=== PATIENT | female | born 1945 | race Caucasian/White ===

== ENCOUNTER 2017-02-06 11:00 | Day surgery (SDC) | payer MEDICARE ==
[2017-02-02 10:08] VITALS: BMI 24.4
[~2017-02-06 11:00] MED LIST: LACTATED RINGERS 1,000 ML IV SCH
[2017-02-06 11:17] VITALS: RESP 16; TEMP 98.3
[2017-02-06] MEDS ORDERED: LIDOCAINE 1% 20 ML VIAL (10MG/ML) FOR IV START INTRADERMA ONE (11:22)
[2017-02-06] MEDS ORDERED: PROPOFOL 10 MG/ML 20 ML VIAL IV ONE (12:20)
--- NOTE | 2017-02-06 12:53 | P.PCN ---
Date of Procedure: 02/06/17 Preoperative Diagnosis: Postoperative Diagnosis: Procedure(s) Performed: Procedure: Total colonoscopy. Preoperative diagnosis: Change in bowel habits. Postoperative diagnosis: Diverticulosis with no evidence of acute diverticulitis , strictures, polyps or cancer. Preparation: HalfLytely prep. Sedation: Was provided by anesthesia. Brief clinical history: The patient is a 71-year-old female who had a bout of diarrhea earlier this month that lasted more than a week. The patient's last colonoscopy was around 9-10 years ago. This evaluation was requested to rule out neoplasia or other pathology. Procedure: With the patient on her left lateral decubitus position and after informed consent and adequate sedation, the perianal area was inspected and it did not show any fissures or fistulas. There were no masses felt on digital rectal examination. The Olympus CFQ 160L video colonoscope was then inserted in the rectum in the usual fashion and advanced to the cecum. The mucosa appeared healthy. There were multiple diverticular orifices seen scattered along the length of the bowel with no evidence of acute diverticulitis or strictures. No polyps or tumors were seen. The patient tolerated the procedure well. Plan: The patient was reassured. Discussed dietary measures. She will follow- up with you as planned and further plans can be made based on her course. I would be happy to see in the future if needed. Implants: Indications for Procedure: Operative Findings: Description of Procedure:
[2017-02-06 13:17] VITALS: BP 157/66; PULSE 61
== END 2017-02-06 13:41 | disposition home or self-care (01) ==
LOC: ORWHC2ENDO 11:00
DX: K57.30 Diverticulosis of large intestine without perforation or abscess without bleeding (principal); R19.4 Change in bowel habit; I10 Essential (primary) hypertension; E78.5 Hyperlipidemia, unspecified; Z79.899 Other long term (current) drug therapy
CPT/HCPCS: 45378; J2704

== ENCOUNTER → 2017-06-13 | Outpatient (CLI) | payer MEDICARE ==
--- NOTE | 2017-06-14 09:27 | MM ---
Reason for exam: screening (asymptomatic). Last mammogram was performed 1 year and 3 months ago. History: Patient is postmenopausal. Physical Findings: A clinical breast exam by your physician is recommended on an annual basis and results should be correlated with mammographic findings. MG 3D Screening Mammo W/Cad Bilateral CC and MLO view(s) were taken. Prior study comparison: March 08, 2016, bilateral MG screening mammo w CAD. January 01, 2015, bilateral MG screening mammo w CAD. June 27, 2013, bilateral digital screening mammo w/CAD. The breast tissue is heterogeneously dense. This may lower the sensitivity of mammography. Finding: There are stable typically benign circumscribed round oval masses in both breasts. No suspicious abnormality. No significant changes in finding since March 08, 2016, January 01, 2015, and June 27, 2013. ASSESSMENT: Benign, BI-RAD 2 RECOMMENDATION: Routine screening mammogram of both breasts in 1 year.
== END | disposition home or self-care (01) ==
LOC: RADMAMWWP 15:19
PROVIDERS: ATTEND Internal Medicine
DX: Z12.31 Encounter for screening mammogram for malignant neoplasm of breast (principal)
CPT/HCPCS: 77063; 77067

== ENCOUNTER → 2018-07-02 | Outpatient (CLI) | payer MEDICARE ==
--- NOTE | 2018-07-06 09:34 | MM ---
Reason for exam: screening (asymptomatic). Last mammogram was performed 1 year and 1 month ago. History: Patient is postmenopausal. Took hormonal contraceptives for 2 years. MG Screening Mammo w CAD Bilateral CC and MLO view(s) were taken. Prior study comparison: June 13, 2017, bilateral MG 3d screening mammo w/cad. March 08, 2016, bilateral MG screening mammo w CAD. The breast tissue is heterogeneously dense. This may lower the sensitivity of mammography. No discrete abnormality. No significant changes when compared with prior studies. ASSESSMENT: Negative, BI-RAD 1 RECOMMENDATION: Routine screening mammogram of both breasts in 1 year.
== END ==
LOC: RADMAMWWP 12:47
PROVIDERS: ATTEND Internal Medicine
DX: Z12.31 Encounter for screening mammogram for malignant neoplasm of breast (principal)
CPT/HCPCS: 77067

== ENCOUNTER → 2019-08-18 | Outpatient (CLI) | payer MEDICARE ==
--- NOTE | 2019-08-19 10:36 | MM ---
Reason for exam: screening (asymptomatic). Last mammogram was performed 1 year and 2 months ago. History: Patient is postmenopausal. Took hormonal contraceptives for 2 years. Physical Findings: A clinical breast exam by your physician is recommended on an annual basis and results should be correlated with mammographic findings. MG 3D Screening Mammo W/Cad Bilateral CC and MLO view(s) were taken. Prior study comparison: July 02, 2018, bilateral MG screening mammo w CAD. June 13, 2017, bilateral MG 3d screening mammo w/cad. The breast tissue is heterogeneously dense. This may lower the sensitivity of mammography. There are benign appearing round calcifications bilaterally. There is chronic nodularity in the right breast. There is no dominant lesion. Benign bilateral axillary lymph nodes redemonstrated. ASSESSMENT: Benign, BI-RAD 2 RECOMMENDATION: Routine screening mammogram of both breasts in 1 year.
== END | disposition home or self-care (01) ==
LOC: RADMAMWWP 16:05
PROVIDERS: ATTEND Internal Medicine
DX: Z12.31 Encounter for screening mammogram for malignant neoplasm of breast (principal)
CPT/HCPCS: 77063; 77067

== ENCOUNTER 2020-10-22 11:00 | Emergency (ER) | payer MEDICARE ==
[2020-10-22 11:08] VITALS: BP 179/81; PULSE 71; RESP 18; TEMP 97.6
[2020-10-22 12:35] LABS: Basophils # (A) 0.1 k/uL (0-0.2); Basophils % (A) 1 %; Eosinophils # (A) 0.1 k/uL (0-0.7); Eosinophils % (A) 2 %; HCT 46.9 % (34.0-46.0); HGB 15.4 gm/dL (11.4-16.0); Lymphocytes # (A) 1.5 k/uL (1.0-4.8); Lymphocytes % (A) 24 %; MCH 28.8 pg (25.0-35.0); MCHC 32.9 g/dL (31.0-37.0); MCV 87.4 fL (80.0-100.0); Mean Platelet Volume 8.7; Monocytes # (A) 0.3 k/uL (0-1.0); Monocytes % (A) 5 %; Neutrophils # (A) 4.2 k/uL (1.3-7.7); Neutrophils % (A) 66 %; Platelet Count 200 k/uL (150-450); RBC 5.37 m/uL (3.80-5.40); RDW 13.8 % (11.5-15.5); WBC 6.4 k/uL (3.8-10.6)
[2020-10-22 12:38] LABS: Appearance,Urine Clear (Clear); Bilirubin,Urine Negative (Negative); Blood,Urine Moderate (Negative); Color,Urine Yellow; Glucose,Urine (UA) Negative (Negative); Ketones,Urine Negative (Negative); Leukocyte Esterase,Urine Small (Negative); Mucus,Urine Rare /hpf; Nitrite,Urine Negative (Negative); Protein,Urine Negative (Negative); RBC,Urine >182 /hpf (0-5); Specific Gravity,Urine 1.023 (1.001-1.035); Squamous Epithelial Cell,Urine <1 /hpf (0-4); Urobilinogen,Urine <2.0 mg/dL (<2.0); WBC,Urine 3 /hpf (0-5)
[2020-10-22 12:44] LABS: ALT 23 U/L (4-34); AST 26 U/L (14-36); African American GFR (CKD) >90 (>60 ml/min/1.73 sqM); Albumin 4.6 g/dL (3.5-5.0); Alkaline Phosphatase 74 U/L (38-126); Anion Gap 7 mmol/L; Blood Urea Nitrogen 20 mg/dL (7-17); Calcium 9.6 mg/dL (8.4-10.2); Carbon Dioxide 26 mmol/L (22-30); Chloride 109 mmol/L (98-107); Glucose 92 mg/dL (74-99); Non-African American GFR(CKD) 87 (>60 ml/min/1.73 sqM); Potassium 4.1 mmol/L (3.5-5.1); Sodium 142 mmol/L (137-145); Total Bilirubin 0.5 mg/dL (0.2-1.3); Total Protein 7.4 g/dL (6.3-8.2)
--- NOTE | 2020-10-22 13:35 | ED ---
Female Urogenital HPI - General Chief complaint: Vaginal Bleeding Stated complaint: female Time Seen by Provider: 10/22/20 11:11 Source: patient Mode of arrival: ambulatory Limitations: no limitations - History of Present Illness Initial comments: Patient is a 75-year-old female presenting to the emergency Department with complaints of vaginal bleeding that started this morning. Patient states she had the same issue 3 days ago, she was evaluated at [facility]. She did have an ultrasound there which showed no complicating process, she does have fibroids. Patient was given some medication, she states the bleeding stopped and she has not had any bleeding for the last 2 days. She states she woke up this morning and noticed bleeding again, describes a dark red, not a large amount. She thought she would come in for evaluation before it got worse again. She states she called Dr. Meier's office this morning who recommended coming into the ER for evaluation. She denies any pain, no nausea or vomiting, no fevers or chills. She states she did have a pessary and for the last month, they did take it out 3 days ago at the hospital. It is not back in. She has no further complaints at this time. - Related Data Home Medications Medication Instructions Recorded Confirmed Atorvastatin [Lipitor] 20 mg PO DAILY 02/02/17 10/22/20 Cyanocobalamin (Vitamin B-12) 1,000 mcg PO HS 02/02/17 10/22/20 [Vitamin B-12] Fish Oil/Dha/Epa [Fish Oil 1,200 1,200 mg PO HS 02/02/17 10/22/20 mg Fish Oil] Red Yeast Rice 1,200 mg PO HS 02/02/17 10/22/20 Vit C/E/Zn/Coppr/Lutein/Zeaxan 1 cap PO HS 02/02/17 10/22/20 [Preservision Areds 2 Softgel] Latanoprost [Xalatan 0.005%] 1 drop BOTH EYES HS 10/22/20 10/22/20 amLODIPine [Norvasc] 5 mg PO DAILY 10/22/20 10/22/20 Allergies Allergy/AdvReac Type Severity Reaction Status Date / Time No Known Allergies Allergy Verified 10/22/20 12:38 Review of Systems ROS Statement: Those systems with pertinent positive or pertinent negative responses have been documented in the HPI. ROS Other: All systems not noted in ROS Statement are negative. Past Medical History Past Medical History: Hyperlipidemia, Hypertension History of Any Multi-Drug Resistant Organisms: None Reported Past Surgical History: Bladder Surgery Additional Past Surgical History / Comment(s): COLONOSCOPY Past Anesthesia/Blood Transfusion Reactions: Motion Sickness Past Psychological History: No Psychological Hx Reported Smoking Status: Never smoker Past Alcohol Use History: None Reported Past Drug Use History: None Reported - Past Family History Mother Sister(s) Family Medical History: Cancer Father Family Medical History: Cancer Mother Family Medical History: Cancer General Exam - General Exam Comments Initial Comments: GENERAL: Patient is well-developed and well-nourished. Patient is nontoxic and in no acute distress. HEAD: Atraumatic, normocephalic. EYES: Pupils equal round and reactive to light, extraocular movements intact, sclera anicteric, conjunctiva are normal. Eyelids were unremarkable. ENT: TMs normal, nares patent, oropharynx clear without exudates. Moist mucous membranes. NECK: Normal range of motion, supple without lymphadenopathy or JVD. LUNGS: Unlabored respirations. Breath sounds clear to auscultation bilaterally and equal. No wheezes rales or rhonchi. HEART: Regular rate and rhythm without murmurs, rubs or gallops. ABDOMEN: Soft, nontender, normoactive bowel sounds. No guarding, no rebound. No masses appreciated. MUSCULOSKELETAL: Normal extremities with adequate strength and normal range of motion, no pitting or edema. No clubbing or cyanosis. NEUROLOGICAL: Patient is alert and oriented x 3. Motor and sensory are also intact. Cranial nerves II through XII grossly intact. Symmetrical smile. Normal speech, normal gait. PSYCH: Normal mood, normal affect. SKIN: Warm, Dry, normal turgor, no rashes or lesions noted. Limitations: no limitations External exam: Present: normal external exam Speculum exam: Present: vaginal bleeding (Very small amount of dark blood in the vaginal vault, mild cervical bleeding, no active hemorrhage, the centeno of the vagina look intact and normal.). Absent: cervical discharge, foreign body, laceration By manual exam: Present: normal by manual exam Course Vital Signs 10/22/20 11:03 Temperature 97.6 F Pulse Rate 71 Respiratory 18 Rate Blood Pressure 179/81 O2 Sat by Pulse 95 Oximetry Medical Decision Making - Medical Decision Making Patient is a 75-year-old female here for vaginal bleeding started this morning. She states she was seen at [facility] 3 days ago, had an ultrasound which showed some fibroids but no other findings. She states she has not had any bleeding for the last 2 days and then again this morning. She called Dr. Meier's office who recommended coming in for evaluation. She has no pain. Her vitals are stable. Her blood work is stable, comparable to 3 days ago at [facility]. On exam she has very small amount of dark blood around her cervix, no active bleeding, no hemorrhaging, no lacerations that I can see. I discussed with patient that she can follow up with Dr. Meier. Return parameters were given to the patient, she verbalized understanding. She is stab le for discharge and she is in agreement with this plan of care. - Lab Data Result diagrams: 10/22/20 12:12 10/22/20 12:12 Lab Results 10/22/20 10/22/20 10/22/20 Range/Units 12:12 12:12 12:12 WBC 6.4 (3.8-10.6) k/uL RBC 5.37 (3.80-5.40) m/uL Hgb 15.4 (11.4-16.0) gm/dL Hct 46.9 H (34.0-46.0) % MCV 87.4 (80.0-100.0) fL MCH 28.8 (25.0-35.0) pg MCHC 32.9 (31.0-37.0) g/dL RDW 13.8 (11.5-15.5) % Plt Count 200 (150-450) k/uL MPV 8.7 Neutrophils % 66 % Lymphocytes % 24 % Monocytes % 5 % Eosinophils % 2 % Basophils % 1 % Neutrophils # 4.2 (1.3-7.7) k/uL Lymphocytes # 1.5 (1.0-4.8) k/uL Monocytes # 0.3 (0-1.0) k/uL Eosinophils # 0.1 (0-0.7) k/uL Basophils # 0.1 (0-0.2) k/uL Sodium 142 (137-145) mmol/L Potassium 4.1 (3.5-5.1) mmol/L Chloride 109 H (98-107) mmol/L Carbon Dioxide 26 (22-30) mmol/L Anion Gap 7 mmol/L BUN 20 H (7-17) mg/dL Creatinine 0.67 (0.52-1.04) mg/dL Est GFR (CKD-EPI)AfAm >90 (>60 ml/min/1.73 sqM) Est GFR (CKD-EPI)NonAf 87 (>60 ml/min/1.73 sqM) Glucose 92 (74-99) mg/dL Calcium 9.6 (8.4-10.2) mg/dL Total Bilirubin 0.5 (0.2-1.3) mg/dL AST 26 (14-36) U/L ALT 23 (4-34) U/L Alkaline Phosphatase 74 (38-126) U/L Total Protein 7.4 (6.3-8.2) g/dL Albumin 4.6 (3.5-5.0) g/dL Urine Color Yellow Urine Appearance Clear (Clear) Urine pH 6.0 (5.0-8.0) Ur Specific [place] 1.023 (1.001-1.035) Urine Protein Negative (Negative) Urine Glucose (UA) Negative (Negative) Urine Ketones Negative (Negative) Urine Blood Moderate H (Negative) Urine Nitrite Negative (Negative) Urine Bilirubin Negative (Negative) Urine Urobilinogen <2.0 (<2.0) mg/dL Ur Leukocyte Esterase Small H (Negative) Urine RBC >182 H (0-5) /hpf Urine WBC 3 (0-5) /hpf Ur Squamous Epith Cells <1 (0-4) /hpf Urine Mucus Rare H (None) /hpf Disposition Clinical Impression: Dysfunctional uterine bleeding Disposition: HOME SELF-CARE Condition: Stable Instructions (If sedation given, give patient instructions): Dysfunctional Uterine Bleeding (ED) Additional Instructions: Please return to the Emergency Department if symptoms worsen or any other concerns. Follow-up with your [facility] TECHNICIAN as discussed. Is patient prescribed a controlled substance at d/c from ED?: No Referrals: Erwin Gill MD [Primary Care Provider] - 1-2 days Xavier Meier DO [Doctor of Osteopathic Medicine] - 1-2 days Time of Disposition: 13:52
== END 2020-10-22 14:04 | disposition home or self-care (01) ==
LOC: EC 11:00
DX: N93.8 Other specified abnormal uterine and vaginal bleeding (principal); I10 Essential (primary) hypertension; E78.5 Hyperlipidemia, unspecified
CPT/HCPCS: 36415; 80053; 81001; 85025; 99284

== ENCOUNTER → 2020-11-03 | Outpatient (CLI) | payer MEDICARE ==
[2020-11-03 23:05] LABS: Basophils # (A) 0.05 X 10*3/uL (0.00-0.10); Basophils % (A) 0.7 %; Eosinophils # (A) 0.15 X 10*3/uL (0.04-0.35); Eosinophils % (A) 2.2 %; HCT 48.2 % (37.2-46.3); HGB 15.3 g/dL (12.0-15.0); Lymphocytes # (A) 1.84 X 10*3/uL (0.90-5.00); Lymphocytes % (A) 27.2 %; MCH 28.7 pg (27.0-32.0); MCHC 31.7 g/dL (32.0-37.0); MCV 90.4 fL (80.0-97.0); Mean Platelet Volume 12.4 fL (9.5-12.2); Monocytes # (A) 0.54 X 10*3/uL (0.20-1.00); Neutrophils # (A) 4.16 X 10*3/uL (1.80-7.70); Neutrophils % (A) 61.6 %; Platelet Count 184 X 10*3/uL (140-440); RBC 5.33 X 10*6/uL (4.10-5.20); RDW 13.7 % (11.5-14.5); WBC 6.76 X 10*3/uL (4.50-10.00)
== END ==
LOC: LABWHC1 16:15
PROVIDERS: ATTEND Obstetrics & Gynecology
DX: Z01.812 Encounter for preprocedural laboratory examination (principal); Z01.810 Encounter for preprocedural cardiovascular examination
CPT/HCPCS: 36415; 85025; 93005

== ENCOUNTER 2020-11-25 11:13 | Day surgery (SDC) | payer MEDICARE ==
[2020-11-23 14:34] VITALS: BMI 24.6
--- NOTE | 2020-11-24 16:39 | P.HPOB ---
History of Present Illness H&P Date: 11/24/20 Chief Complaint: Postmenopausal bleeding Rufus is a 75-year-old female who has postmenopausal bleeding. She is scheduled for a D&C with hysteroscopy. Risks/benefits/alternatives to this procedure were reviewed the patient in detail and all questions were answered for her prior to proceeding to the operative. Ultrasound revealed a potential 2.5 cm lesion within the fundal region of her uterus and this needs to be evaluated for cancerous change. Past Medical History Past Medical History: Hyperlipidemia, Hypertension Additional Past Medical History / Comment(s): post menopausal bleeding,had pessary-currently removed History of Any Multi-Drug Resistant Organisms: None Reported Past Surgical History: Bladder Surgery Additional Past Surgical History / Comment(s): COLONOSCOPY,cataract removed rt eye Past Anesthesia/Blood Transfusion Reactions: No Reported Reaction Smoking Status: Never smoker - Past Family History Mother Sister(s) Family Medical History: Cancer Father Family Medical History: Cancer Mother Family Medical History: Cancer Medications and Allergies Home Medications Medication Instructions Recorded Confirmed Type Atorvastatin [Lipitor] 20 mg PO DAILY 02/02/17 11/23/20 History Cyanocobalamin (Vitamin B-12) 1,000 mcg PO HS 02/02/17 11/23/20 History [Vitamin B-12] Fish Oil/Dha/Epa [Fish Oil 1,200 1,200 mg PO HS 02/02/17 11/23/20 History mg Fish Oil] Red Yeast Rice 1,200 mg PO HS 02/02/17 11/23/20 History Vit C/E/Zn/Coppr/Lutein/Zeaxan 1 cap PO HS 02/02/17 11/23/20 History [Preservision Areds 2 Softgel] Latanoprost [Xalatan 0.005%] 1 drop BOTH EYES HS 10/22/20 11/23/20 History amLODIPine [Norvasc] 5 mg PO QAM 10/22/20 11/23/20 History Allergies Allergy/AdvReac Type Severity Reaction Status Date / Time No Known Allergies Allergy Verified 11/23/20 14:26 Exam Osteopathic Statement: *. No significant issues noted on an osteopathic structural exam other than those noted in the History and Physical/Consult. - OBG Physical Exam Breast: both: normal (no masses) Abdomen: bowel sounds normal, no diffuse tenderness, no bruit present, no guarding noted, no hepatomegaly, no splenomegaly, no mass Vulva: both: normal Vagina: normal moisture, no discharge Cervix: no lesion, no discharge Uterus: normal size, normal contour Adnexa: both: normal Anus/Rectum: normal perianal skin, no rectal mass, no hemorrhoids, heme negative
[~2020-11-25 11:13] MED LIST changes: +DEXAMETHASONE SOD PHOSPHATE 4 MG/ML 1 ML VIAL IV ONE; +HYDROmorphone 0.5 MG/0.5 ML SYRINGE IVP PRN; +LIDOCAINE 1% (10MG/ML) FOR IV START INTRADERMA PRN; +MIDAZOLAM 2 MG/2 ML VIAL IV PRN; +ONDANSETRON 4 MG/2 ML VIAL IVP ONE; +Pre Op ABX Message 1 EACH MISC MISCELLANE ONE
[2020-11-25] MEDS ORDERED: ROCURONIUM 10 MG/ML (5 ML VIAL) IV ONE ×2 (13:32)
[2020-11-25] MEDS ORDERED: fentaNYL (PF) 50 MCG/ML 2 ML AMP ONE (13:32)
[2020-11-25] MEDS ORDERED: MIDAZOLAM 2 MG/2 ML VIAL ONE (13:32)
[2020-11-25] MEDS ORDERED: KETOROLAC 15 MG/ML 1 ML VIAL ONE (13:32)
[2020-11-25] MEDS ORDERED: PHENYLEPHRINE-0.9% NACL SYG 1,000 MCG/10 ML SYRINGE ONE (13:32)
[2020-11-25] MEDS ORDERED: LIDOCAINE 1% INJ 10MG/ML (20 ML MDV) ONE (13:32)
[2020-11-25] MEDS ORDERED: PROPOFOL 10 MG/ML 20 ML VIAL IV ONE (13:32)
[2020-11-25] MEDS ORDERED: GLYCOPYRROLATE 0.2 MG/ML 2 ML VIAL ONE (13:32)
[2020-11-25] MEDS ORDERED: NEOSTIGMINE 1 MG/ML 10 ML VIAL ONE (13:32)
[2020-11-25] MEDS ORDERED: SUCCINYLCHOLINE CHLORIDE 100 MG/5 ML SYR IV ONE (13:32)
[2020-11-25] MEDS ORDERED: SODIUM CHLORIDE 0.9% 100 ML with ceFAZolin 2,000 MG IV ONE ×2 (14:36)
[2020-11-25] MEDS ORDERED: BUPIVACAINE (PF) 0.25% 30 ML VIAL SQ ONE (14:40)
[2020-11-25] MEDS ORDERED: LACTATED RINGERS 1,000 ML IV ONE (14:55)
--- NOTE | 2020-11-25 15:31 | P.OP ---
Date of Procedure: 11/25/20 Procedure(s) Performed: PREOPERATIVE DIAGNOSIS: Uterine perforation POSTOPERATIVE DIAGNOSIS: Same PROCEDURE: Laparoscopic repair uterine perforation with diagnostic laparoscopy SURGEON: Dennis EBL: 25 mL ANESTHESIA: Gen. COMPLICATIONS: None OPERATIVE PROCEDURE: Patient underwent D&C by gynecology. I was contacted to assist with this case after uterine perforation was encountered during the procedure. A small piece of fat was removed during the D&C and concern for possible intra-abdominal injury was raised. Gynecology spoke with the family and they decided to proceed with laparoscopic evaluation. The initial laparoscopic portion of the procedure will be dictated by gynecology as they obtained sufflation and initial trocar placement. After the abdomen was inspected 2 additional 5 mm trochars were placed in the right upper quadrant under direct visualization. The patient's pelvis was inspected. Some blood was present in the pelvis and evacuated using the suction device. A 1.5-2 cm perforation of the dome of the uterus was identified without significant active bleeding. The adjacent sigmoid colon was inspected. Patient had significant diverticulosis but no evidence of iatrogenic injury. The cecum and appendix were inspected. There was a small piece of fat seen missing from the mesentery of the appendix. This appeared to be the source of fat present during the D&C I suspect. The appendix itself was viable and only a small piece of fat was removed and not close to the appendix. The small bowel was then inspected. The small bowel was ran from the ileocecal valve to the ligament of Treitz. No abnormalities were identified. It was decided then to place 2 sutures to close the defect at the perforation site. 2-0 Vicryl suture was used using an SH needle that was bent slightly. Separate sutures were placed and tied down using the tie knot device. No bleeding was seen at that point. Pelvis was irrigated. No other abnormalities identified. Patient will be observed overnight. Closure will be dictated separately by gynecology. DISPOSITION: Stable to recovery room
[2020-11-25] MEDS ORDERED: ONDANSETRON 4 MG/2 ML VIAL IVP PRN (15:42)
[2020-11-25] MEDS ORDERED: KETOROLAC 15 MG/ML 1 ML VIAL IVP PRN (15:42)
[2020-11-25] MEDS ORDERED: SIMETHICONE 80 MG CHEWABLE PO PRN (15:42)
[2020-11-25] MEDS ORDERED: Acetaminophen-Codeine 300-30mg TAB PO PRN (15:42)
--- NOTE | 2020-11-25 15:52 | P.OP ---
Date of Procedure: 11/25/20 Preoperative Diagnosis: Postmenopausal bleeding with uterine mass Postoperative Diagnosis: Same with uterine perforation and diagnostic laparoscopy and repair of uterine perforation Procedure(s) Performed: D&C with hysteroscopy noted uterine perforation diagnostic laparoscopy with uterine perforation repair Anesthesia: CARMEN Surgeon: Xavier Meier Erp Engineer #1: Richard Collins Estimated Blood Loss (ml): 25 IV fluids (ml): 900 Urine output (ml): 250 Pathology: other (Uterine curettings) Condition: stable Disposition: floor Operative Findings: Uterine perforation noted during hysteroscopy converted to diagnostic laparoscopy verify no bowel injury Description of Procedure: Patient was taken to the operating suite where a general anesthetic was found be adequate. She was prepped and draped in the normal sterile fashion and placed in the dorsal lithotomy position. Initially a MATC was used. Initially a weighted speculum was inserted into the vagina and the anterior lip cervix identified and grasped with a Allis clamp. Cervix was then dilated. Camera was then inserted and noted large fundal mass it was on a stalk and difficult to say if it was a fibroid or polyp sharp curettings of the endometrium were then obtained. At this point we did try with a polyp forcep to grasp the mass and in trying to [place] around the mass I did feel like we had a purchase on the mass in therefore polyp forceps was retracted and a small piece what appeared to be fat was brought through. At this point due to that finding camera was reinserted and a uterine perforation was noted. It was difficult to say where in the uterine wall it was perforated as the mass she had the perforation and it was challenges to get around the mass to be able to see. Due to unknown possible towel injury and concern that the laceration may be fairly large due to the fact that I didn't know was there when we used polyp forceps I did break scrub and go speak with the family and decision to do a diagnostic laparoscopy with general surgeon was made to allow us to visualize the complete bowel to make sure there is no injuries as well as if the uterine laceration or perforation was bleeding could put suture in. She was converted then to laparoscopic procedure and a Driscoll catheter was placed. She was repositioned in the dorsal supine position and reprepped and draped and 2 g of Ancef was pr ovided. Quarter percent Marcaine was injected approximately 2 mL periumbilically and through this injected anesthetic a 5 mm skin incision was made. Through this incision under direct visualization with an optical trocar and sleeve the camera was inserted. Once peritoneal placement was assured gas was left fully insufflate the abdomen and patient was then placed in steep Trendelenburg position. At this point to ports were placed in the right lateral and upper lateral quadrants to allow for manipulation bowel. Dr. Dutton at this point did run the bowel there was a small piece of omentum were. Missing from the periappendiceal area but no bleeding is noted from that area appendix and other and bowel otherwise appear unremarkable there does not appear to be any lacerations or perforations there is no leaking from anywhere and the bowel approximately 10-15 minutes of the procedure was spent doing this part of the procedure. Once this was completed pelvis was irrigated and suctioned and a an approximately 1 cm laceration in the left fundal region was noted. Part of the urgency for doing a laparoscopy was then I was concerned that this may be actually posterior uterine perforation as that fibroid locked my ability to visualize around it and elected do was to see where the perforation was at the couldn't identify the location behind the fibroid. At this point using 3-0 Vicryl interrupted suture was placed in 2 separate sutures to reapproximate and close the uterine laceration please see Dr. Dutton notes for more thorough information on this closure and the running of the large and small intestine. Once this was completed reinspection was performed and no areas of bleeding or change are noted therefore incidents were removed and gas was allowed to expel from the abdomen. 5 deep breaths were provided during this process. 4-0 suture was then placed subcuticularly in the incisions and another 8-10 mL of quarter percent Marcaine was injected around the incisions. Sponge, lap, needle counts were all correct 2. Patient was then taken to the recovery room in stable and satisfactory condition and Driscoll cath will be removed removed prior to admission. We'll plan to admit 24 hour observation.
[2020-11-25] MEDS ORDERED: LACTATED RINGERS 1,000 ML IV SCH (16:30)
[2020-11-25] MEDS ORDERED: LATANOPROST 0.005% OPHTH DROPS 2.5 ML BTL BOTH EYES SCH (21:00)
[2020-11-26 08:55] VITALS: PULSE 71; RESP 18; TEMP 97.6
[2020-11-26] MEDS ORDERED: ATORVASTATIN 20 MG TAB PO SCH (09:00)
[2020-11-26] MEDS ORDERED: amLODIPine 5 MG TAB PO SCH (09:00)
[2020-11-26 09:12] VITALS: BP 155/77
--- NOTE | 2020-11-26 09:17 | P.DS ---
Providers Expected date of discharge: 11/26/20 Attending physician: Xavier Meier Consults: 11/25/20 17:51 Consult Physician Routine Consulting Provider: Erwin Glil Consult Reason/Comments: medical management Do you want consulting provider notified?: Yes Primary care physician: Erwin Gill [facility] Course: Naresh is seen and evaluated this morning postop day 1. She is able to ambulate, void and she is tolerating her diet. She is also passing flatus. Vital signs are stable and she is afebrile. Blood pressure had some elevations yesterday prior to her blood pressure medication but have stabilized since then. She is due for her blood pressure medicine now with blood pressure of 150s over 70s to 80s. She will follow me in 1 week. We again reviewed the surgery and consultation encountered. I did speak with her son and [id number] over the telephone and explained what happened and all questions were answered for them prior to hang up. She is doing well this morning and requests no narcotics for pain. Pressure for Motrin was for her to her pharmacy and strict discharge instructions were reviewed. She is aware should she have any high temperatures if she should have any severe pain abdominal bloating or swelling to notify our office immediately or report to the emergency room. Prescription for Keflex for next 3 days is also prescribed at her request. All the questions are answered and she is stable for discharge at this time. Patient Condition at Discharge: Good Plan - Discharge Summary Discharge Rx Participant: No New Discharge Prescriptions: New Ibuprofen [Motrin] 600 mg PO Q6HR PRN #30 tab PRN Reason: Pain No Action Atorvastatin [Lipitor] 20 mg PO DAILY Vit C/E/Zn/Coppr/Lutein/Zeaxan [Preservision Areds 2 Softgel] 1 cap PO HS Red Yeast Rice 1,200 mg PO HS Fish Oil/Dha/Epa [Fish Oil 1,200 mg Fish Oil] 1,200 mg PO HS Cyanocobalamin (Vitamin B-12) [Vitamin B-12] 1,000 mcg PO HS Latanoprost [Xalatan 0.005%] 1 drop BOTH EYES HS amLODIPine [Norvasc] 5 mg PO QAM Discharge Medication List Atorvastatin [Lipitor] 20 mg PO DAILY 02/02/17 [History] Cyanocobalamin (Vitamin B-12) [Vitamin B-12] 1,000 mcg PO HS 08/25/17 [History] Fish Oil/Dha/Epa [Fish Oil 1,200 mg Fish Oil] 1,200 mg PO HS 02/02/17 [History] Red Yeast Rice 1,200 mg PO HS 02/02/17 [History] Vit C/E/Zn/Coppr/Lutein/Zeaxan [Preservision Areds 2 Softgel] 1 cap PO HS 02/02/17 [History] Latanoprost [Xalatan 0.005%] 1 drop BOTH EYES HS 10/22/20 [History] amLODIPine [Norvasc] 5 mg PO QAM 10/22/20 [History] Ibuprofen [Motrin] 600 mg PO Q6HR PRN #30 tab 11/26/20 [Rx] Follow up Appointment(s)/Referral(s): Xavier Meier DO [Doctor of Osteopathic Medicine] - 1 Week Activity/Diet/Wound Care/Special Instructions: No heavy lifting, limit stairs and driving, and pelvic rest. If any high temperatures, heavy bleeding, or severe pain call my office Discharge Disposition: HOME SELF-CARE
== END 2020-11-26 11:00 | disposition home or self-care (01) ==
LOC: OR 11:13 → 6PED 16:13 → OR 11-26 11:00
PROVIDERS: ATTEND Obstetrics & Gynecology
DX: N95.0 Postmenopausal bleeding (principal); N99.71 Accidental puncture and laceration of a genitourinary system organ or structure during a genitourinary system procedure; Y65.8 Other specified misadventures during surgical and medical care; Y76.8 Miscellaneous obstetric and gynecological devices associated with adverse incidents, not elsewhere classified; Y92.234 Operating room of hospital as the place of occurrence of the external cause; K57.90 Diverticulosis of intestine, part unspecified, without perforation or abscess without bleeding; E78.5 Hyperlipidemia, unspecified; I10 Essential (primary) hypertension; Z79.899 Other long term (current) drug therapy
CPT/HCPCS: 88305; 58558; 58578; J2250; J1100; J2710; J2405; J0690; J2001; J3010; J1885; J2370; J0330; J2704; J1170

== ENCOUNTER → 2023-04-05 | Outpatient (CLI) | payer MEDICARE ==
--- NOTE | 2023-04-05 20:25 | BD ---
EXAMINATION TYPE: Axial Bone Density DATE OF EXAM: 04/05/2023 CLINICAL HISTORY: 77 years old Female. ICD-10 CODE: Z78.0 Height: 4 ft 9 1/2 in Weight: 118 FRAX RISK QUESTIONS: Alcohol (3 or more units per day): no Family History (Parent hip fracture): no Glucocorticoids (More than 3mos): no (Ex: prednisone, prednisolone, methylprednisolone, dexamethasone, and hydrocortisone). History of Fracture in Adulthood: no Secondary Osteoporosis: 1. Type 1 Diabetes: no 2. Hyperthyroidism: no 3. Menopause before 45: no 4. Malnutrition: no 5. Chronic liver disease: no Rheumatoid Arthritis: no Current Tobacco Use: no RISK FACTORS HISTORY OF: Surgery to Spine/Hip(right/left)/Wrist (right/left): no Family History of Osteoporosis: no Active: yes Diet low in dairy products/other sources of calcium: no Postmenopausal woman: yes Take estrogen and/or progesterone medications: no Lost more than 2 inches in height since high school: yes Frequent falls: no Poor Health: good Hyperparathyroidism: no Adrenal Insufficiency: no MEDICATIONS: Additional Medications: atorvastatin, amlodipine, triamterene-hctz, Additional History: EXAM MEASUREMENTS: Bone mineral densitometry was performed using the [employer] System. Bone mineral density as measured about the Lumbar spine is: ----- L1-L4(G/cm2): 1.199 T Score Values are as follows: ----- L1: 0.5 ----- L2: 0.0 ----- L3: 0.2 ----- L4: -0.2 ----- L1-L4: 0.2 Z Score Values are as follows: ----- L1: 2.6 ----- L2: 2.2 ----- L3: 2.4 ----- L4: 2.0 ----- L1-L4: 2.3 Bone mineral density has: decreased -2.0 % since study of: 2002 Bone mineral density about the R hip (g/cm2): 0.701 Bone mineral density about the L hip (g/cm2): 0.651 T Score values are as follows: -----R Neck: -2.4 -----L Neck: -2.8 -----R Total: -1.5 -----L Total: -1.4 Z Score values are as follows: -----R Neck: -0.2 -----L Neck: -0.5 -----R Total: 0.6 -----L Total: 0.7 Bone mineral density has: decreased -5.7 % since study of: 2002 FRAX%s: The graph provided illustrates a 21.0 % chance for a major osteoporotic fx and a 7.8 % chance for the hips probability for fx in 10 years time. IMPRESSION: Osteoporosis (T Score less than -2.5). There is increased fracture risk and therapy is usually indicated based on age. Re-Screen 1-2 years. NOTE: T-SCORE=SD OF THE YOUNG ADULT MEAN.
--- NOTE | 2023-04-06 07:36 | MM ---
Reason for Exam: Screening (asymptomatic). Last mammogram was performed 3 year(s) and 7 month(s) ago. Patient History: Menarche at age 19. First Full-Term at age 24. Postmenopausal. Patient used Hormonal Contraceptives for 2 years. Risk Values: Lisseth 5 year model risk: 1.4%. NCI Lifetime model risk: 2.9%. Prior Study Comparison: 06/13/2017 Bilateral Screening Mammogram, [facility]. 07/02/2018 Bilateral Screening Mammogram, [facility]. 08/18/2019 Bilateral Screening Mammogram, [facility]. Tissue Density: The breast tissue is heterogeneously dense. This may lower the sensitivity of mammography. Findings: Analyzed By CAD. There is no suspicious group of microcalcifications or new suspicious mass in either breast. Benign-appearing round calcifications bilaterally. Stable chronic nodularity within both breasts. Overall Assessment: Benign, BI-RAD 2 Management: Screening Mammogram of both breasts in 1 year. A clinical breast exam by your physician is recommended on an annual basis and results should be correlated with mammographic findings. Note on Lisseth scores and lifetime risk: 1. A Lisseth score greater than 3% is considered moderate risk. If this is the case, consider specialist referral to assess eligibility for a risk reducing agent. If overall lifetime risk for the development of breast cancer is 20% or higher, the patient may qualify for future screening with alternating mammogram and breast MRI. Electronically signed and approved by: Ernesto Mortensen D.O.
== END | disposition home or self-care (01) ==
LOC: RADMAMWWP 15:47
PROVIDERS: ATTEND Family Medicine
DX: Z12.31 Encounter for screening mammogram for malignant neoplasm of breast (principal); M81.0 Age-related osteoporosis without current pathological fracture; M85.851 Other specified disorders of bone density and structure, right thigh; Z78.0 Asymptomatic menopausal state
CPT/HCPCS: 77063; 77067; 77080

== ENCOUNTER → 2024-07-11 | Outpatient (CLI) | payer MEDICARE ==
--- NOTE | 2024-07-11 14:28 | MM ---
Reason for Exam: Screening (asymptomatic). Last mammogram was performed 1 year(s) and 3 month(s) ago. Patient History: Menarche at age 19. First Full-Term at age 24. Postmenopausal. Patient used Hormonal Contraceptives for 2 years. Risk Values: Lisseth 5 year model risk: 1.4%. NCI Lifetime model risk: 2.5%. Prior Study Comparison: 07/02/2018 Bilateral Screening Mammogram, [facility]. 08/18/2019 Bilateral Screening Mammogram, [facility]. 04/05/2023 Bilateral MG 3D screening mammo w/cad, [facility]. Tissue Density: The breasts are heterogeneously dense, which may obscure small masses. Findings: Analyzed By CAD. Right breast: There is no suspicious group of microcalcifications or new suspicious mass. Left breast: There is no suspicious group of microcalcifications or new suspicious mass. Overall Assessment: Negative, BI-RAD 1 Management: Screening Mammogram of both breasts in [address] [facility] will attempt to contact patient to return for supplemental views and ultrasound if indicated. Patient should continue monthly self-breast exams. A clinical breast exam by your physician is recommended on an annual basis. This exam should not preclude additional follow-up of suspicious palpable abnormalities. Note on Lisseth scores and lifetime risk: 1. A Lisseth score greater than 3% is considered moderate risk. If this is the case, consider specialist referral to assess eligibility for a risk reducing agent. 2. If overall lifetime risk for the development of breast cancer is 20% or higher, the patient may qualify for future screening with alternating mammogram and breast MRI. [facility], , 07/11/2024 2:24 PM. Electronically signed and approved by: Adonis Johnson DO
== END | disposition home or self-care (01) ==
LOC: RADMAMWWP 13:59
PROVIDERS: ATTEND Family Medicine
DX: Z12.31 Encounter for screening mammogram for malignant neoplasm of breast (principal); R92.333 Mammographic heterogeneous density, bilateral breasts; Z78.0 Asymptomatic menopausal state
CPT/HCPCS: 77063; 77067